=== PATIENT | male | born 1995 | race Two or more races ===

== ENCOUNTER 2016-09-02 22:44 | Emergency (ER) | payer BC ==
[2016-09-02 22:51] VITALS: RESP 16; TEMP 98.6
--- NOTE | 2016-09-02 23:50 | EDPHY ---
H & P Time Seen by Provider: 09/02/16 22:49 HPI/ROS: CHIEF COMPLAINT: Left knee laceration HISTORY OF PRESENT ILLNESS: 21-year-old male presents emergency department a laceration to his left knee. Patient fell off his skateboard today. He has no other complaints, no head strike, no neck pain. Tetanus is up-to-date, no numbness or tingling in his leg, no other complaints. Smoking Status: Never smoked Physical Exam: GEN: Awake, alert, oriented, no acute distress RESP: nl resp effort MSK: Left knee with full active flexion and extension, 2 cm L-shaped laceration just over patella, no tenderness to palpation to patella, no knee effusion, 2+ pedal pulses, sensation intact to light touch Constitutional: Initial Vital Signs Temperature (C) 37.0 C 09/02/16 22:48 Heart Rate 79 09/02/16 22:48 Respiratory Rate 16 09/02/16 22:48 Blood Pressure 154/85 H 09/02/16 22:48 O2 Sat (%) 94 09/02/16 22:48 O2 Delivery Mode Room Air Allergies/Adverse Reactions: No Known Allergies Allergy (Verified 09/02/16 22:47) Home Medications: Medication Instructions Recorded NK [No Known Home Meds] 04/23/14 MDM/Departure - MDM Procedures: Procedure: Laceration repair. Verbal consent was obtained from the patient. The 2 cm laceration on the left knee was anesthetized using 1% lidocaine with epinephrine. The wound was carefully irrigated by the emergency department certified emergency vehicle technician. Next, the wound was prepped and draped in sterile fashion and explored to its base with a gloved finger. There were no deep structures involved. No tendon injury was identified. No vascular injury was identified. No foreign bodies were identified. The wound was repaired with 4.0 Prolene, 5 simple interrupted suture. The wound repair was simple. The procedure was performed by myself. Tetanus and antibiotic status were addressed. - Depart Disposition: Home, Routine, Self-Care Clinical Impression: Laceration of left knee Qualifiers: Encounter type: initial encounter Qualified Code(s): S81.012A - Laceration without foreign body, left knee, initial encounter Condition: Good Instructions: Laceration (ED) Additional Instructions: Return to the emergency department in 12-14 days for suture removal, return sooner for any signs of infection. Stand Alone Forms: Work Excuse Referrals: NONE *PRIMARY CARE P,. [Primary Care Provider] - As per Instructions
[2016-09-03 00:01] VITALS: BP 138/82; PULSE 72; O2SAT 95
== END 2016-09-03 | disposition home or self-care (01) ==
PROC: 0HQLXZZ Repair Left Lower Leg Skin, External Approach (ICD-10-PCS; principal; 2016-09-02)
DX: S81.012A Laceration without foreign body, left knee, initial encounter (principal); V00.131A Fall from skateboard, initial encounter; Y93.51 Activity, roller skating (inline) and skateboarding